=== PATIENT | female | born 1990 | race Two or more races ===

== ENCOUNTER 2024-01-14 09:00 | Outpatient (CLI) | payer OTHER | END 2024-01-14 09:02 | disposition home or self-care (01) | LOC: PRENATAL 09:00 | PROVIDERS: ATTEND Obstetrics & Gynecology Maternal & Fetal Medicine | DX: O35.9XX0 Maternal care for (suspected) fetal abnormality and damage, unspecified, not applicable or unspecified (principal); O35.3XX0 Maternal care for (suspected) damage to fetus from viral disease in mother, not applicable or unspecified; O44.02 Complete placenta previa NOS or without hemorrhage, second trimester; Z3A.19 19 weeks gestation of pregnancy ==

== ENCOUNTER → 2024-04-07 10:15 | Outpatient (CLI) | payer OTHER | END | disposition home or self-care (01) | LOC: PRENATAL 10:15 | PROVIDERS: ATTEND Obstetrics & Gynecology Maternal & Fetal Medicine | DX: O26.849 Uterine size-date discrepancy, unspecified trimester (principal); O36.8199 Decreased fetal movements, unspecified trimester, other fetus; Z3A.33 33 weeks gestation of pregnancy ==

== ENCOUNTER 2024-06-02 07:35 | Inpatient (IN) | payer OTHER ==
[~2024-06-02] VITALS: Ht 170.2 cm; Wt 3.6 kg
[2024-06-02 10:01] VITALS: BP 119/85
[2024-06-02] MEDS ORDERED: RINGERS SOLUTION,LACTATED 1,000 ML IV SCH (10:45)
[2024-06-02] MEDS ORDERED: AMPICILLIN SODIUM 2,000 MG VIAL IV ONE (10:45)
[2024-06-02 10:48] VITALS: BP 119/85
[2024-06-02 10:57] LABS: HEMATOCRIT 33.9 % (36.0-45.00); HEMOGLOBIN 11.9 g/dL (12.0-15.00); MEAN CELL VOLUME 87.7 fL (80.00-100.00); MEAN CORPUSCULAR HEMOGLOBIN 30.8 pg (27.00-32.0); MEAN CORPUSCULAR HGB CONC 35.1 g/dl (32.0-36.0); PLATELET COUNT 266 K/uL (150-450); RED BLOOD COUNT 3.87 M/uL (4.00-6.00); RED CELL DISTRIBUTION WIDTH 13.8 % (11.5-14.5)
[2024-06-02] MEDS ORDERED: PRENATAL + DHA1 EAC1 PO (10:59)
[2024-06-02 11:02] LABS: PH,URINE 6.5 (5.0-8.0); URINE APPEARANCE Clear; URINE BILIRRUBIN Negative (NEGATIVE); URINE BLOOD Trace; URINE COLOR Yellow; URINE GLUCOSE Negative (NEGATIVE); URINE KETONE Negative (NEGATIVE); URINE LEUKOCYTE Negative; URINE NITRATE Negative; URINE PROTEIN Negative (NEGATIVE); URINE UROBILINOGEN 0.2 E.U./dl
[2024-06-02 11:06] LABS: URINE BACTERIA 2469.8 uL (0.0-1933); URINE EPITHELIAL CELLS 16.4 uL (0.0-38.8); URINE WBC 38.4 uL (0.0-23.2)
[2024-06-02 11:08] LABS: URINE CAST 0.58 uL (0.0-1.40)
[2024-06-02 11:24] LABS: INR 0.94; PARTIAL THROMBOPLASTIN TIME 24.6 SECONDS (22.0-34.0); PROTHROMBIN TIME 10.3 SECONDS (9.0-11.5)
[2024-06-02] MEDS ORDERED: MISOPROSTOL 25 MCG/4 ML GEL.W.APPL VAG ONE ×2 (12:15→20:45)
[2024-06-02 12:30] VITALS: BP 117/60
[2024-06-02] MEDS ORDERED: AMPICILLIN SODIUM 1,000 MG VIAL IV SCH (16:00)
[2024-06-02] MEDS ORDERED: MISOPROSTOL 25 MCG/4 ML GEL.W.APPL ONE (18:32)
[2024-06-02 23:14] VITALS: BP 127/67
[2024-06-03 03:59] VITALS: BP 116/65
[2024-06-03 07:20] VITALS: BP 112/56
[2024-06-03] MEDS ORDERED: OXYTOCIN 10 UNITS/ML VIAL ONE (11:23)
[2024-06-03] MEDS ORDERED: ERYTHROMYCIN BASE OPHT 1GM EACH TUBE OP ONE ×2 (11:23→16:00)
[2024-06-03 12:12] VITALS: BP 134/82
[2024-06-03] MEDS ORDERED: METOCLOPRAMIDE HCL 5 MG/ML VIAL IV NR (12:30)
[2024-06-03] MEDS ORDERED: CITRIC ACID/SODIUM CITRATE 30 ML BLIST.PACK PO NR (12:30)
[2024-06-03] MEDS ORDERED: METOCLOPRAMIDE HCL 5 MG/ML VIAL ONE (12:33)
[2024-06-03] MEDS ORDERED: OXYTOCIN 10 UNITS/ML VIAL IV ONE (16:00)
[2024-06-03] MEDS ORDERED: MORPHINE SULFATE 4 MG/ML CARTRIDGE IV PRN (17:30)
[2024-06-03] MEDS ORDERED: MORPHINE SULFATE 4 MG/ML VIAL IV ONE (17:30)
[2024-06-03 19:37] VITALS: BP 124/87
[2024-06-04 00:14] VITALS: BP 127/84
[2024-06-04 08:00] VITALS: BP 129/79
[2024-06-04] MEDS ORDERED: OxyCODONE HCL/APAP UD (PERCOCET) PO PRN (10:15)
[2024-06-04 17:49] VITALS: BP 129/81
[2024-06-05 01:00] VITALS: BP 128/78
[2024-06-05 08:07] VITALS: BP 118/75
[2024-06-05 15:42] VITALS: BP 125/84
[2024-06-06 00:35] VITALS: BP 124/81
[2024-06-06 08:59] VITALS: BP 127/82
== END 2024-06-06 16:02 | disposition home or self-care (01) | DRG 788 ==
LOC: OB/GYN 07:35 → LDR 08:35 → OB/GYN 06-03 16:20
PROVIDERS: ADMIT Obstetrics & Gynecology Obstetrics; ATTEND Obstetrics & Gynecology Obstetrics
PROC: 4A1HXCZ Monitoring of Products of Conception, Cardiac Rate, External Approach (ICD-10-PCS; 2024-06-02)
PROC: 3E0P7VZ Introduction of Hormone into Female Reproductive, Via Natural or Artificial Opening (ICD-10-PCS; 2024-06-02)
PROC: 3E033VJ Introduction of Other Hormone into Peripheral Vein, Percutaneous Approach (ICD-10-PCS; 2024-06-03)
PROC: 10D00Z1 Extraction of Products of Conception, Low, Open Approach (ICD-10-PCS; principal; 2024-06-03 11:00)
DX: O36.63X0 Maternal care for excessive fetal growth, third trimester, not applicable or unspecified (principal); O62.0 Primary inadequate contractions; Z3A.40 40 weeks gestation of pregnancy; Z37.0 Single live birth

== ENCOUNTER 2024-06-13 16:11 | Emergency (ER) | payer OTHER ==
[~2024-06-13] VITALS: Ht 170.2 cm
[~2024-06-13 16:11] MED LIST: PRENATAL + DHA1 EAC1 PO
[2024-06-13] MEDS ORDERED: AMOX1TAB5 PO (17:08)
[2024-06-13] MEDS ORDERED: MUPIROCIN15 GM TOP (17:08)
== END 2024-06-13 17:53 | disposition home or self-care (01) ==
LOC: ER 16:13
DX: N61.0 Mastitis without abscess (principal)